=== PATIENT | female | born 1970 | race Caucasian/White ===

== ENCOUNTER 2022-06-14 19:22 | Emergency (ER) | payer OTHER, SELFPAY ==
[2022-06-14 19:37] VITALS: BP 135/78; PULSE 89; RESP 18; TEMP 37.3; O2SAT 99; BMI 24.2
--- NOTE | 2022-06-14 19:47 | CRLHL7_ITS ---
For Patients: As a result of the Cures Act, medical imaging exams and procedure reports are released immediately into your electronic medical record. You may view this report before your referring provider. If you have questions, please contact your health care provider. Indication: Injury and pain Technique: Left wrist with navicular 4 views Comparison: None Findings: Bones: Alignment is normal. No fractures or bone lesions. Joint spaces: Unremarkable. Soft tissues: Unremarkable. Impression: No sign of acute injury. Dictated by Steve Roche MD @ 06/14/2022 8:05:00 PM (Electronically Signed)
--- NOTE | 2022-06-14 20:00 | ED.UPPEXIN ---
HPI - Extremity Injury (Upper) General Chief Complaint: Extremity Pain/Injury, Upper Stated Complaint: Fell on ice, L wrist injury Time Seen by Provider: 06/14/22 19:27 History of Present Illness HPI narrative: 51-year-old woman presenting to the emergency department I believe accompanied by her daughter, with complaint of left wrist pain. She also landed on her bum and she hurt her tailbone little bit. Did not hurt her back. Did not hit her head there was no loss of consciousness. Sounds like she slipped on the ice and there was a FOOSH injury sustained to her left arm/wrist. She has taken some acetaminophen. 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 Is understandably concerned that her wrist sprain will limit her ability to help. Related Data Home Medications Medication Instructions Recorded Confirmed No Known Home Medications 06/14/22 06/14/22 Allergies Allergy/AdvReac Type Severity Reaction Status Date / Time Penicillins Allergy Mild Hives Verified 06/14/22 19:39 Review of Systems Status of ROS: Reports: 6 or more systems reviewed and unremarkable except as noted in History and below [facility] Medical History Chronic low back pain Dysthymic disorder Surgical History H/O colonoscopy H/O right wrist surgery Social History Smoking Status: Never smoker Do you use any of these nicotine containing products: None Second hand tobacco smoke exposure: No How often do you have a drink containing alcohol: never How often do you have six or more drinks on one occasion: Never AUDIT-C Alcohol total score: 0 Non-prescribed substance use: denies use Exam Narrative: Exam Narrative: Pleasant. Slightly blunted affect. Breathing easily. NAD. Icing her left wrist. She transitions to standing and sitting without significant difficulty. Palpation of her back does not elicit reproduction of pain. Head looks to be atraumatic. She is moving her neck without difficulty and neck is without pain. Examination of her left wrist and hand initially there is pain to any movement of the wrist. It is softly swollen over the area the navicular. Quite tender to palpation here. Able to open and close her hand though without apparent difficulty. Thumbs-up without difficulty. Const: Vital Signs, click to edit/add: Vital Signs - 24 hr 06/14/22 19:37 06/14/22 20:51 06/14/22 20:55 Temperature 99.1 F 98.5 F 98.5 F Pulse Rate [Right Pulse Oximeter] 89 85 85 Respiratory Rate 18 18 18 Blood Pressure [Ri ght Upper Arm] 135/78 124/74 124/74 Pulse Oximetry 99 99 Oxygen Delivery Me thod Room Air Room Air Documenting provider has reviewed patient's vital signs: yes Course Vital Signs Vital signs: Initial Vital Signs Temperature 99.1 F 06/14/22 19:37 Temperature Source Temporal Artery Scan 06/14/22 19:37 Pulse Rate 89 06/14/22 19:37 Respiratory Rate 18 06/14/22 19:37 Blood Pressure 135/78 06/14/22 19:37 Blood Pressure Mean 97 06/14/22 19:37 Blood Pressure Position Sitting 06/14/22 19:37 Pulse Oximetry 99 06/14/22 19:37 Oxygen Delivery Method 06/14/22 19:37 Vital Signs Temperature 99.1 F 06/14/22 19:37 Pulse Rate 89 06/14/22 19:37 Respiratory Rate 18 06/14/22 19:37 Blood Pressure 135/78 06/14/22 19:37 Pulse Oximetry 99 06/14/22 19:37 Oxygen Delivery Method 06/14/22 19:37 Temperature 98.5 F 06/14/22 20:55 Pulse Rate 85 06/14/22 20:55 Respiratory Rate 18 06/14/22 20:55 Blood Pressure 124/74 06/14/22 20:55 Pulse Oximetry 99 06/14/22 20:51 Oxygen Delivery Method 06/14/22 20:51 MDM - Extremity Injury (Upper) MDM Narrative Medical decision making narrative: She does not feel she needs any pain medication at this time. Ordered three view x-ray with focus of the navicular. On my read on the oblique in particular the looks and irregular lucency extending toward the joint space of the distal radius. There is no cortical disruption though in the neck. There is a small effusion in the joint. I do not see any injury to the navicular. Did discuss these findings with Radiology who read this as unremarkable wrist. Suspicion is nutrient vessel though possible fracture depending on clinical exam. I return to examine and has pain primarily in the joint space on re-examination though admittedly also at the distal radius. After discussion of potential treatment options and later imaging versus CT now, opted to splint and follow-up as needed. As I have continuing to examine though does not seem to have much pain now on movement of the wrist. I am less convinced of fracture. Placed in a 11 inch cinch lock brace. Discharge Plan Discharge Clinical Impression: Left wrist sprain Patient Disposition: Home w/ Parent or Adult Condition: Improved Additional Instructions: I would continue to ice your wrist a couple of times daily over the next few days. I like those ice bags with the screw top -- fill with ice and water. Wear this splint over the next week and schedule a follow up if just not improved in a week. Can take up to 800 mg of ibuprofen or up to 1000 mg of acetaminophen per dose. Alternate to the ibuprofen might be up to 500 mg naproxen 2 times daily. Work note written. Prescriptions: No Action No Known Home Medications Follow Up/Referrals: Michelle Ge PA-C [Primary Care Provider] - Stand Alone Forms: [employer] Info Instructions
[2022-06-14 20:51] VITALS: BP 124/74; PULSE 85; RESP 18; TEMP 36.9; O2SAT 99
[2022-06-14 20:55] VITALS: BP 124/74; PULSE 85; RESP 18; TEMP 36.9
== END 2022-06-14 20:55 | disposition home or self-care (01) ==
PROVIDERS: Emergency Provider Family Medicine; PCP Physician Assistant Medical
DX: S63.502A Unspecified sprain of left wrist, initial encounter (principal); W00.9XXA Unspecified fall due to ice and snow, initial encounter
CPT/HCPCS: 29125; 73110; 99283; 99284

== ENCOUNTER 2024-10-19 08:03 | Emergency (ER) | payer OTHER, SELFPAY ==
--- OUTSIDE RECORDS SUMMARY | 2024-10-19 08:05 | XMS_ITS | Clinical Summary ---
Author Organization 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/11/2012 Dysthymic disorder 02/23/2010 Immunizations Immunization Administration Dates Next Due COVID-19 vaccine (Moderna 100mcg/0.5mL) PF, MDV 07/07/2020,06/09/2020 Influenza, IIV4 02/11/2020,04/22/2019 Tdap 04/12/2011 Family History Medical History Relation Name Comments No Known Problems Brother Cancer Father pancreas Cancer-colon Father Heart Disease Father Hyperlipidemia Father Cancer Maternal Aunt Emphysema Maternal Grandfather No Known Problems Maternal Grandmother Cancer-breast Mother Stroke Mother No Known Problems Paternal Grandfather No Known Problems Paternal Grandmother Cancer-breast Sister 1 No Known Problems Sister 2 No Known Problems Sister 3 No Known Problems Sister 4 Relation Name Status Comments Brother Alive Father (Age 76) Maternal Aunt Maternal Grandfather Maternal Grandmother Mother Alive Paternal Grandfather Paternal Grandmother Sister 1 Alive Sister 2 Alive Sister 3 Alive Sister 4 Alive Social History Tobacco Use Types Packs/Day Years Used Date Smoking Tobacco: Never Smokeless Tobacco: Never Tobacco Cessation:Counseling Given: Yes Alcohol Use Standard Drinks/Week Comments No 0 (1 standard drink = 0.6 oz pur e alcohol) PHQ-2 Answer Date Recorded PHQ-2 TOTAL SCORE 0 09/24/2020 Social Connections Answer Date Recorded Frequency of Communication with Friends and Fami ly Not on file 05/10/2021 Financial Resource Strain Answer Date R ecorded Difficulty of Paying Living Expenses Not on file 05/10/2021 Difficulty of Paying Living Expenses Not on file 05/10/2021 Comments No Sex and Gender Information Value Date Recorded Sex Assigned at Not on file Legal Sex Female 6:41 AM ADVERTISING ASSOCIATE Gender Identity Not on file Sexual Orientation Not on file 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 Not on file Not on file Obstetrics History Para Term AB IAB SAB Ectopic Multiple Livin g Live Births 3 3 3 Date Outcome GA Total Labor Labor/2nd/3rd Weight Sex Type Anes PTL Kaela A1 A5 Name Clin Para Para Para Last Filed Vital Signs Vital Sign Reading Time Taken Comments Blood Pressure 139/92 10/15/2020 7:59 AM CDT Pulse 101 10/15/2020 7:59 AM CDT Temperature 36.7 C (98 F) 10/15/2020 7:59 AM CDT Respiratory Rate 18 01/03/2010 3:54 PM CDT Oxygen Saturation 96% 10/15/2020 7:59 AM CDT Inhaled Oxygen Concentration - - Weight 59 kg (130 lb) 10/15/2020 7:59 AM CDT Height 169 cm (5' 6.54) 10/15/2020 7:59 AM CDT Body Mass Index 20.65 10/15/2020 7:59 AM CDT Plan of Treatment Health Maintenance Due Date Last Done Comments Hepatitis B series for 19+ ( 1 of 3 - 19+ 3-dose series) 1989 Pneumococcal series for age 50+ (1 of 1 - PCV) 2020 Zoster (shingles) series for age 50+ (1 of 2) 2020 Tetanus booster 04/12/2021 04/12/2011, 04/12/2011 Depression screening for age 12+ 09/24/2021 09/24/2020, 04/22/2019, 07/26/2017, Additional history exists Mammogram for age 45-75 09/27/2021 09/28/19 21, 04/30/2019, 08/14/2017, Additional history exists BMI (ht and wt on same day) for age 18+ 10/15/2021 10/15/2020, 09/24/2020, 04/22/2019, Additional history exists COVID-19 vaccine series ( season) 2024 07/07/2020, 06/09/2020 Pap test for age 21-65 04/22/2024 9, 04/22/2019, 07/14/2015, Additional history exists Influenza Vaccine (Season Ended) 2025 02/11/20 20, 04/22/2019 Lipids for age 45-75 09/24/2025 09/24/2020, 07/28/2016, 07/14/2015, Additional history exists Colonoscopy through age 75 11/30/202511/30, 11/30/2020, 11/30/2020 Tdap Completed 04/12/2011 HIV for age 15-65 Completed 07/28/2016, 03/28/2010 Hepatitis C screening for ag e 18-79 Completed 07/28/2016, 03/28/2010 Procedures Procedure Name Priority Date/Time Associated Diagnosis Comments COLONOSCOPY SCREENING Routine 11/30/2020 9:53 AM CDT Screen for colon cancer XR MAMMO MATTHEW BILAT SCREEN Routine 09/27/2020 3:26 PM CDT Visit for screening mammogram LIPID PANEL W REFLEX MEASURED LDL Routine 09/24/2020 3:52 PM CDT Screening cholesterol level SILVERER THIN PREP PAP SCREEN IMAGED Routine 04/22/2019 9:49 AM ADVERTISING ASSOCIATE Pap smear for cervical cancer screening ANTI HIV 1/2 Routine 07/28/2016 9:58 AM CDT Screen for STD (sexually transmitted disease) ANTI HCV Routine 07/28/2016 9:58 AM CDT Screen for STD (sexually transmitted disease) from Last 3 Months or Most Recently Relevant to Health Maintenance Results * COLONOSCOPY (11/30/2020 9:43 AM CDT) 11/30/2020 9:43 AM CDT Narrative Transcriptions Tushar Hernandez MD - 11/30/2020 11:51 AM CDT Patient Name: Jeffrey Obrien Procedure Date: 11/30/2020 Gender: Female Date of : 1970 Admit Type: Outpatient Procedure: Colonoscopy Proceduralist: Tushar Hernandez MD , Malena Conway (Nurse) Referring MD: Michelle Ge Indications/Pre-Op Diagnosis: Screening for colorectal malignant neoplasm, This is the patient's first colonoscopy Medications: Fentanyl 200 micrograms IV, Midazolam 4 mgIV Procedure Description: The patient had risks, benefits and alternatives explained to andgave informed consent. The patient had a stable cardiopulmonary status and judged an adequate candidate for conscious sedation. The [id number]-[id number] was passed through the anus with the intentionof advancing to the cecum. The scope was advanced to the transversecolon before the procedure was aborted. Medications were given. The colonoscopy was performed without difficulty. The patient toleratedthe procedure well. The quality of the bowel preparation was good. The rectum was photographed. Complications: No immediate complications. Estimated Blood Loss & Specimen: Estimated blood loss: none. Specimen collected - None Findings: The perianal and digital rectal examinations were normal. The colon (entire examined portion) was moderately redundant. Scattered small and large-mouthed diverticula were found in thesigmoid colon and descending colon. The exam was otherwise without abnormality on direct and retroflexion views. Impressions/Post-Op Diagnosis: - Redundant colon. - Diverticulosis in the sigmoid colon and in the descending colon. - The examination was otherwise normal on direct and retroflexionviews. - No specimens collected. Recommendation: - Patient has a contact number available for emergencies. The signsand symptoms of potential delayed complications were discussed with the patient. Return to normal activities tomorrow. Written discharge instructions were provided to the patient. - Resume previous diet. - Continue present medications. - No repeat colonoscopy due to divreticular dsease and excessivepain. - Perform a virtual colonoscopy at appointment to be scheduled. Moderate Sedation: Moderate (conscious) sedation was administered by the endoscopy nurse and supervised by the endoscopist. The following parameters were monitored: oxygen saturation, heart rate, respiratory rate, blood pressure, adequacy of pulmonary ventilation and reponse to care. Please refer to the patient's medical record flowsheets and nursing notes for moderate sedation details. Total physician intraservice time was 18 minutes. Tushar Hernandez MD 11/30/2020 11:51:01 AM This report has been signed electronically. Note Initiated On: 11/30/2020 9:43 AM Procedure Code(s): --- Professional --- 42228, 53, Colonoscopy, flexible;diagnostic, including collection of specimen(s) bybrushing or washing, when performed (separateprocedure) Diagnosis Code(s): --- Professional --- Z12.11, Encounter for screening formalignant neoplasm of colon K57.30, Diverticulosis of large intestine without perforation or abscess withoutbleeding Q43.8, Other specified congenitalmalformations of intestine CPT copyright 2020 [employer]. All rights reserved. The codes documented in this report are preliminary and upon albacore fishing boat crewman reviewmay be revised to meet current compliance requirements. Scope In: 10:45:52 AM Scope Out: 11:00:17 AM Tushar Hernandez MD PROCEDURE ORD Final Res ult * XR MAMMO MATTHEW BILAT SCREEN (09/27/2020 3:26 PM CDT) Anatomical Region Laterality Modality BREASTS, Breast Left, Breast Right Bilateral Mammography Impressions 09/28/2020 3:51 PM CDT There is no radiographic evidence for malignancy. Recommend annual mammograms. MAMMOGRAM ASSESSMENT: ACR 1 Negative PATIENTS: You will also receive a letter with your examination results in an easy to read format. If you have questions about your results, please contact your referring provider. Narrative 09/28/2020 3:51 PM CDT XR MAMMO MATTHEW BILAT SCREEN [[id number]] CLINICAL HISTORY: This is an asymptomatic 49 y.o. patient. INDICATION FOR EXAM: Mammogram Screening. TECHNIQUE: CC & MLO views were obtained. This study was evaluated with the assistance of Computer-Aided Detection. Breast Tomosynthesis was used in interpretation. COMPARISON FILM: Yes 04/30/19 [place] 08/14/17 [employer] FINDINGS: The breasts are heterogeneously dense, which may obscure small masses. There are no dominant masses, suspicious micro calcifications or areas of architectural distortion. Michelle JASMINE MAMMO Final R esult * LIPID PANEL W REFLEX MEASURED LDL (09/24/2020 3:52 PM CDT) CHOLESTEROL,TOTAL 178 100 - 199 mg/dL 09/24/2020 8:45 PM CDT [facility] TRIGLYCERIDES 80 <150 mg/dL 09/24/2020 8:45 PM CDT [facility] HDL CHOLESTEROL 64 >40 mg/dL 8:45 PM CDT [facility] NON-HDL CHOLESTEROL 114 <145 mg/dl 09/24/2020 8:45 PM CDT [facility] CHOL/HDL RATIO 2.78 <4.50 09/24/2020 8:45 PM CDT [facility] LDL CHOLESTEROL 98 <=130 mg/dL 09/24/2020 8:45 PM CDT [facility] VLDL CHOLESTEROL 16 mg/dL 09/25/19 8:45 PM CDT [facility] PROVIDER ORDERED STATUS RANDOM 09/24/2020 8:45 PM CDT [facility] Blood BLOOD SPECIMEN / Unknown Butterfly / Unknown 09/24/2020 3:52 PM CDT 09/24/2020 3:52 PM CDT us Michelle JASMINE CHEMISTRY Final R esult [facility] [address] [place] [address], [place] * SILVERER THIN PREP PAP SCREEN IMAGED (04/22/2019 9:49 AM ADVERTISING ASSOCIATE) Case Report Gynecologic Cytology Report Case: [id number] Authorizing Provider: Michelle Ge PA Collected: 04/22/2019 0949 Ordering Location: [facility] Received: 04/22/2019 1146 Clinic First Screen: Laney Christianson Specimen: SILVERER ThinPrep Vial Screening, Cervical 04/30/2019 1:21 PM ADVERTISING ASSOCIATE [facility] Continuity Control ENTRAL LABORATORY INTERPRETATION/ RESULT NEGATIVE FOR INTRAEPITHELIAL LESION OR MALIGNANCY (NIL) (none) 04/30/2019 1:21 PM ADVERTISING ASSOCIATE [facility]AL [facility]OR[facility] at 1321 ADVERTISING ASSOCIATE SPECIMEN ADEQUACY Satisfactory for evaluation Endocervical component present 04/30/2019 1:21 PM ADVERTISING ASSOCIATE [facility] EN[facility]AL [facility]ORATORY HPV REQUEST HPV and PAP 04/30/2019 1:21 PM ADVERTISING ASSOCIATE [facility] Continuity ControlC ENTRAL LABORATORY Date of LMP 11--19 04/30/2019 1:21 PM ADVERTISING ASSOCIATE [facility] ENTRAL LABORAT[facility] Last Pap Date 07/13/16 04/30/2019 1:21 PM ADVERTISING ASSOCIATE [facility] Last Pap Result NIL 9 1:21 PM ADVERTISING ASSOCIATE [facility] ENTRAL LABORATORY Abnormal Pap or Lawrence Bx in last 5 years No 04/30/2019 1:21 PM ADVERTISING ASSOCIATE [facility] ENTROH LABORATORY Menstrual Status Regular Periods 04/30/2019 1:21 PM ADVERTISING ASSOCIATE [facility] Lawrence Bx Done Today No 04/30/2019 1:21 PM ADVERTISING ASSOCIATE [facility] Additional Information None given 04/30/2019 1:21 PM ADVERTISING ASSOCIATE [facility] Comment: Interpreted at [facility] - [address], [place] [address] Automated Review Successful 04/30/2019 1:21 PM [facility] Comment:Specimen processed s uccessfully by automated angle shear set up operator device, ThinPrep Imaging System, [employer] ANCILLARY TESTING SILVERER HPV Ordered, Please see separate report 04/30/2019 1:21 PM [facility] Note The pap test is a screening technique, not a diagnostic procedure. It is used primarily to screen for squamous cancers and precursor lesions. Published studies have shown that it is subject to both false negative and false positive results. The pap test should not be used as the sole means to diagnose or exclude pre-malignant and malignant lesions. Cytology is screened and interpreted at [facility] - [address], [place] [address] and [facility] - [address]; [place] [address] and [facility] - [address]; [place] [address] and [facility] [address]; [place] [address] 04/30/2019 1:21 PM [facility] Other (Cervical) Non-Blood / Unknown 04/22/2019 9:49 AM ADVERTISING ASSOCIATE 04/22/2019 11:46 AM ADVERTISING ASSOCIATE us Michelle JASMINE PATHOLOGY/CYTOLOGY Diana l Result [facility] [address] [place] [address], * ANTI HCV (07/28/2016 9:58 AM CDT) HEPATITIS C ANTIBODY Non-Reacti ve Non-Reacti ve 07/28/2016 5:46 PM CDT [facility] Blood BLOOD SPECIMEN / Unknown Venipuncture / Unknown 07/28/2016 9:58 AM CDT 07/28/2016 9:58 AM CDT Narrative [facility] - 07/28/2016 5:46 PM CDT Antibodies to HCV not detected; does not exclude the possibility of exposure to HCV. Michelle JASMINE SEND OUTS Final R esult [facility] [address] [place] [address], * ANTI HIV 1/2 (07/28/2016 9:58 AM CDT) HIV-1/HIV-2 ANTIBODY Non-Reacti ve Non-Reacti ve 07/28/2016 5:59 PM CDT [facility] Blood BLOOD SPECIMEN / Unknown Venipuncture / Unknown 07/28/2016 9:58 AM CDT 07/28/2016 9:58 AM CDT Narrative [facility] - 07/28/2016 5:59 PM CDT HIV-1 p24 and HIV-1/HIV-2 Ab not detected Michelle JASMINE SEND OUTS Final R esult [facility] [address] [place] [address], from Last 3 Months or Most Recently Relevant to Health Maintenance Insurance MEDICAID [facility] * Guarantor: JEFFREY ORBIEN Account Type Relation to Patient Date of Phone Billing Address [employer] 1970 [address] [id number] Care Teams Scalping Machine Operator Relationship Specialty Start Date End Date Michelle [place] [address] [place] [address] PCP - General Family Practice 01/10/13
[2024-10-19 08:10] VITALS: BP 189/89; PULSE 86; RESP 22; TEMP 36.4; O2SAT 84; BMI 21.0
--- NOTE | 2024-10-19 09:23 | ED_ITS ---
HPI - General Adult General Chief complaint: Shortness of Breath/Dyspnea Stated complaint: vomiting, difficulty breathing Time Seen by Provider: 10/19/24 08:08 History of Present Illness HPI narrative: Patient is a 53-year-old woman who was feeling fine yesterday but had a difficult night with repeated coughing and shortness of breath. Patient presented by private car to the [facility] where she initially was found have an oxygen saturation of 84%. I did immediately go to her bedside and found her to be unconscious code was called and pink material was suctioned from her mouth. Rhythm was a white complex junctional rhythm with a rate of approximately 45 beats per minute. High-quality CPR was started and epinephrine was given. We did provide for respirations with bag mask. After approximately 5 minutes of CPR and 2 doses of epinephrine agreeable to get a pulse back. Patient was able to move her toes and follow commands. While we were in the process of collecting lab work and x-ray the patient Manuel down again and despite 2 doses of atropine and 6 1 mg doses of epinephrine we are unable to maintain sinus rhythm. The the patient was intubated by helicopter a plastic tubing insulation supervisor who had come to transport the patient to [facility]. Patient is a airway was aggressively suctioned of red material. After approximately an hour of high quality CPR and advanced ACLS protocol we are unable to maintain any pulse or sustainable rhythm. I did visit with the patient's who agrees to stop resuscitation efforts. Related Data Home Medications ?Medication ?Instructions ?Recorded ?Confirmed No Known Home Medications 06/14/22 02/0 06/05 Allergies Allergy/AdvReac Type Severity Reaction Status Date / Time Penicillins Allergy Mild Hives Verified 06/14/22 19:39 [facility] Medical History Chronic low back pain ?M54.50 - Low back pain, unspecified (ICD-10) ?G89.29 - Other chronic pain (ICD-10) Dysthymic disorder ?F34.1 - Dysthymic disorder (ICD-10) Surgical History H/O colonoscopy ?Z98.890 - Other specified postprocedural states (ICD-10) H/O right wrist surgery ?Z98.890 - Other specified postprocedural states (ICD-10) Social History Smoking Status: Never smoker Do you use any of these nicotine containing products: None Second hand tobacco smoke exposure: No How often do you have a drink containing alcohol: never How often do you have six or more drinks on one occasion: Never AUDIT-C Alcohol total score: 0 Non-prescribed substance use: denies use Exam Narrative: Exam Narrative: EXAM GENERAL: Patient is unconscious and frothing from the mouth. EYES: No scleral icterus. LYMPH: No supraclavicular or cervical lymphadenopathy. SKIN: Visible skin seen during exam normal or with benign process only. EXT: No dependent lower extremity pedal edema. HEART: Absent heart sounds LUNGS: Rhonchi bilaterally with bag-mask ventilation. ABD: Soft, non tender, non distended. Const: Vital Signs, click to edit/add: Vital Signs - 24 hr 10/19/24 08:10 Temperature 97.6 F Pulse Rate [Right Pulse Oximeter] 86 Respiratory Rate 22 Blood Pressure [Ri ght Upper Arm] 189/89 H Pulse Oximetry 84 L Oxygen Delivery Me thod Room Air Course Course ED Course: Patient seen examined and coded per protocol as above. Unfortunately the patient at 9:15 a.m.. Vital Signs Vital signs: Initial Vital Signs Temperature 97.6 F 10/19/24 08:10 Temperature Source Temporal Artery Scan 10/19/24 08:10 Pulse Rate 86 10/19/24 08:10 Pulse Rhythm Regular 10/19/24 08:10 Respiratory Rate 22 10/19/24 08:10 Blood Pressure 189/89 H 10/19/24 08:10 Blood Pressure Mean 122 H 10/19/24 08:10 Blood Pressure Position Sitting 10/19/24 08:10 Pulse Oximetry 84 L 10/19/24 08:10 Oxygen Delivery Method Room Air 10/19/24 08:10 Vital Signs Temperature 97.6 F 10/19/24 08:10 Pulse Rate 86 10/19/24 08:10 Respiratory Rate 22 10/19/24 08:10 Blood Pressure 189/89 H 10/19/24 08:10 Pulse Oximetry 84 L 10/19/24 08:10 Oxygen Delivery Method Room Air 10/19/24 08:10 Temperature 97.6 F 10/19/24 08:10 Pulse Rate 86 10/19/24 08:10 Respiratory Rate 22 10/19/24 08:10 Blood Pressure 189/89 H 10/19/24 08:10 Pulse Oximetry 84 L 10/19/24 08:10 Oxygen Delivery Method Room Air 10/19/24 08:10 Discharge Plan Discharge Clinical Impression: Cardiac arrest Patient Disposition: Xfer Other Prescriptions: No Action No Known Home Medications [facility] Inst[facility]
[2024-10-19] MEDS: EPINEPHrine 0.1 MG/ML SYRINGE 1 MG IVP ×10 (13:20→13:22)
[2024-10-19] MEDS: 0.9 % SODIUM CHLORIDE 1000 ml 1,000 ML 4000 ML IV ×2 (13:20→13:21)
[2024-10-19] MEDS: ATROPINE 1 mg/10 ml IVP ×2 (13:21→13:22)
--- NOTE | 2024-10-19 15:23 | ED.NURSE ---
Per Registrar, unable to register account.
== END 2024-10-19 15:53 | disposition expired ==
LOC: ED 15:58
PROVIDERS: Emergency Provider Internal Medicine; PCP Physician Assistant Medical
DX: I46.9 Cardiac arrest, cause unspecified (principal)
CPT/HCPCS: 92950; 93005; 99283; 99291; J0171; J0461; J7030